=== PATIENT | female | born 1995 | race Hispanic/Latino ===

== ENCOUNTER 2019-11-20 13:31 | Emergency (ER) | payer MEDICAID, OTHER | END 2019-11-20 17:09 | disposition home or self-care (01) | LOC: EDH 13:31 | DX: U07.1 COVID-19 (principal); M94.0 Chondrocostal junction syndrome [Tietze]; J18.1 Lobar pneumonia, unspecified organism; R50.9 Fever, unspecified; Z98.890 Other specified postprocedural states | CPT/HCPCS: 36415; 71045; 80048; 81025; 85025; 87880; 93005; 99285; U0003 ==